=== PATIENT | male | born 1980 | race Caucasian/White ===

== ENCOUNTER 2022-01-13 06:15 | Emergency (ER) | payer OTHER, SELFPAY ==
[2022-01-13 06:15] VITALS: BP 154/101; PULSE 104; RESP 16; TEMP 36.2; O2SAT 100
[2022-01-13 07:20] VITALS: PULSE 79; RESP 15
[2022-01-13 07:30] VITALS: PULSE 83; RESP 17
[2022-01-13 07:31] VITALS: BP 152/103; PULSE 79; RESP 16
--- NOTE | 2022-01-13 07:37 | ED.ABDPAIN ---
HPI - Abdominal Pain General Chief Complaint: Abdominal Pain Stated Complaint: RUQ pain, nausea Time Seen by Provider: 01/13/22 06:51 History of Present Illness HPI narrative: 41-year-old male presenting to the emergency department for evaluation of recurrent right upper quadrant pain. Patient states that a few weeks ago he was diagnosed with cholelithiasis. Patient reports he was on a course of antibiotics and felt improved. Patient states he had recurrent pain this morning when he woke up. Patient states since the pain started it has begun to improve. Patient does report associated nausea. On initial evaluation patient was resting comfortably in the room. Related Data Allergies Allergy/AdvReac Type Severity Reaction Status Date / Time Penicillins Allergy Unknown Verified 01/13/22 06:22 Review of Systems Review of Systems: CONSTITUTIONAL: Denies fever, chills, or sweats. EYES: Denies visual changes, redness, or discharge. ENT: Denies rhinorrhea, congestion, sore throat, or otalgia. CARDIOVASCULAR: Denies chest pain, palpitations, or edema. RESPIRATORY: Denies cough or dyspnea. GASTROINTESTINAL: See HPI GENITOURINARY: Denies dysuria or hematuria. SKIN: Denies rash or itching. MUSCULOSKELETAL: Denies back pain, joint pain, or myalgia. NEUROLOGIC: Denies headache, numbness, or weakness. PSYCHIATRIC: Denies anxiety or depression. Exam Narrative: APPEARANCE: Well appearing, resting comfortably HEAD: normocephalic, atraumatic. EYES: PERRLA/EOMI, conjunctivae clear. NOSE: Normal no drainage NECK: Supple. No adenopathy, no masses. RESPIRATORY: Airway patent, respirations nonlabored. Clear to auscultation bilaterally, no rales, rhonchi, wheezing. CARDIOVASCULAR: Regular rate and rhythm without murmurs rubs or gallops. ABDOMINAL: Soft, nondistended normal bowel sounds, mild upper quadrant tenderness to palpation. MUSCULOSKELETAL: Moves all extremities. Strength/ROM intact, No edema, No calf tenderness. NEURO: Alert. Cranial nerves II through XII intact. Grossly intact SKIN: Warm, dry. Normal Color Course Course Emergency Course: Patient had minimal tenderness to palpation. Patient does have leukocytosis of 11.8. Patient was afebrile. Lactic acid is 1.3. No elevation in T bili, AST, ALT or alk phos. Patient has minimal tenderness to palpation. Low clinical concern for acute cholecystitis at this time. Patient is resting comfortably and is in no visible distress. Vital Signs Vital signs: Vital Signs Temperature 97.1 F L 01/13/22 06:15 Pulse Rate 104 H 01/13/22 06:15 Respiratory Rate 16 01/13/22 06:15 Blood Pressure 154/101 H 01/13/22 06:15 Pulse Oximetry 100 01/13/22 06:15 Temperature 97.1 F L 01/13/22 06:15 Pulse Rate 79 01/13/22 07:31 Respiratory Rate 20 01/13/22 09:50 Blood Pressure 152/103 H 01/13/22 07:31 Pulse Oximetry 100 01/13/22 06:15 MDM - Abdominal Pain Lab Data Attestation: I reviewed the patient's lab results. Result diagrams: 01/13/22 07:54 01/13/22 07:54 Labs: Lab Results 01/13/22 01/13/22 01/13/22 Range/Units 07:54 07:54 07:54 WBC 11.8 H (4.5-10.0) K/mm3 RBC 5.02 (4.6-6.20) M/mm3 Hgb 15.3 (14.0-18.0) g/dL Hct 45.6 (42.0-52.0) % MCV 90.8 (80-100) fl MCH 30.5 (26-34) pg MCHC 33.6 (32-36) g/dl RDW 12.7 (11.5-14.5) % Plt Count 251 (150-375) k/mm3 MPV 9.2 (7.4-10.4) fl Immature Gran % (Auto) 0.4 (0-0.5) % Neut % (Auto) 78.0 H (45.5-73.1) % Lymph % (Auto) 14.0 L (18.3-44.2) % Waller % (Auto) 4.3 (2.6-8.5) % Eos % (Auto) 2.9 (0-4.4) % Baso % (Auto) 0.4 (0.2-1.2) % Lymph # (Auto) 1.65 (0.9-3.2) K/mm3 Waller # (Auto) 0.5 (0.1-0.6) K/mm3 Eos # (Auto) 0.3 (0-0.3) K/mm3 Baso # (Auto) 0.1 (0.0-0.1) K/mm3 Abs Immat Gran (auto) 0.05 H (0.00-0.031) K/mm3 Absolute Neuts (auto) 9.2 H (1.3-6.7) K/mm3 Absolute Nucleated RBC 0.0 (0
[2022-01-13] MEDS: SODIUM CHLORIDE 0.9% IV 1,000 ML 999 ML IV CONT (07:54)
[2022-01-13] MEDS: KETOROLAC 15 MG/ML VIAL (*BKC) IV PUSH (07:54)
[2022-01-13] MEDS: ONDANSETRON INJ 4 MG/2 ML VIAL IV PUSH (07:55)
[2022-01-13 07:59] LABS: Basophils Absolute Auto 0.1 K/mm3 (0.0-0.1); Basophils Percent Auto 0.4 % (0.2-1.2); Eosinophils Absolute Auto 0.3 K/mm3 (0-0.3); Eosinophils Percent Auto 2.9 % (0-4.4); Hematocrit 45.6 % (42.0-52.0); Hemoglobin 15.3 g/dL (14.0-18.0); Immature Granulocyte Absolute 0.05 K/mm3 (0.00-0.031); Immature Granulocyte Percent A 0.4 % (0-0.5); Lymphocytes Absolute Auto 1.65 K/mm3 (0.9-3.2); Mean Corpuscular HGB Conc 33.6 g/dl (32-36); Mean Corpuscular Hemoglobin 30.5 pg (26-34); Mean Corpuscular Volume 90.8 fl (80-100); Mean Platelet Volume 9.2 fl (7.4-10.4); Monocytes Absolute Auto 0.5 K/mm3 (0.1-0.6); Monocytes Percent Auto 4.3 % (2.6-8.5); Neutrophils Absolute Auto 9.2 K/mm3 (1.3-6.7); Platelet Count Result 251 k/mm3 (150-375); Red Blood Count 5.02 M/mm3 (4.6-6.20); Red Cell Distribution Width 12.7 % (11.5-14.5); White Blood Count 11.8 K/mm3 (4.5-10.0)
[2022-01-13 08:09] LABS: Lactic Acid Reflex 1.3 mmol/L (0.7-2.0)
[2022-01-13 08:10] LABS: Alanine Aminotransferase 23 U/L (6-50); Alkaline Phosphatase 105 U/L (38-126); Anion Gap 4 mmol/L (8-16); Aspartate Amino Transferase 20 U/L (17-59); Bilirubin,Total 0.5 mg/dL (0.2-1.3); Blood Urea Nitrogen 15 mg/dL (9-20); Carbon Dioxide 27 mmol/L (22-30); Chloride 103 mmol/L (98-107); Estimated CRCL calculation 84 ml/min; Estimated Glomerular Filt Rate > 60; Glucose 131 mg/dL (65-110); Lipase 35 U/L (23-300); Potassium 4.3 mmol/L (3.4-5.0); Sodium 134 mmol/L (137-145)
--- NOTE | 2022-01-13 08:13 | PC.NURSE ---
0800 Pt states Ketorolac will not decrease his pain and demands to be seen by Dr. alcantar. Pt willing to try ketorolac for pain. Pt states he recieved ativan on the last visit to the ED and it was the only thing that improved his pain. Dr. Sam Sherman notified of patient request. Pt resting on side.
[2022-01-13] MEDS: LORazepam INJ (*CRX) 2 MG/ML VIAL 0.5 MG IV PUSH (08:57)
[2022-01-13 09:50] VITALS: RESP 20
== END 2022-01-13 09:50 | disposition home or self-care (01) ==
PROVIDERS: Emergency Provider Emergency Medicine
DX: K80.20 Calculus of gallbladder without cholecystitis without obstruction (principal)
CPT/HCPCS: 36415; 80053; 83605; 83690; 85025; 96361; 96374; 96375; 99284; J1885; J2060; J2405; J7030

== ENCOUNTER 2023-08-10 16:36 | Emergency (ER) | payer OTHER, SELFPAY ==
[2023-08-10 16:48] VITALS: BP 134/78; PULSE 94; RESP 16; TEMP 36.2; O2SAT 99
--- NOTE | 2023-08-10 17:19 | ED.EYEPROB ---
HPI - Eye Problem General Chief complaint: Eye Problems Stated complaint: Eyes Irritation Source: patient Mode of arrival: ambulatory Limitations: no limitations History of Present Illness HPI Narrative: 43-year-old male presented for complaint of left eye redness and blurred vision. Onset suddenly yesterday around 2100, stating the eye started blurring and tearing and the nose started running. He wears contact lenses, and states the left one fell out around 1400 yesterday, and he put it back in without cleaning it. Reports when the lenses were taken out due to the pain, the pain was actually worse, so he put the contact lens back in. Tearing is better today. He denies any injury or FB, but states he has been around [employer] while working at [employer]. Pt wears overnight contacts for months at a time as directed, but states he started with a new pair 3 days ago. chief complaint: eye pain Related Data Home Medications Medication Instructions Recorded Confirmed No Home Medications 08/10/23 08/10/23 Allergies Allergy/AdvReac Type Severity Reaction Status Date / Time Penicillins Allergy Unknown Verified 01/13/22 06:22 Review of Systems Review of Systems: CONSTITUTIONAL: Denies body aches, fever, chills EYES:Endorses redness and pain to left eye, blurred vision; denies swelling, FB sensation, photophobia ENT: Denies rhinorrhea, congestion, sore throat, or otalgia. CARDIOVASCULAR: Denies chest pain, palpitations RESPIRATORY: Denies cough or dyspnea. GASTROINTESTINAL: Denies abdominal pain, nausea, vomiting, or diarrhea. SKIN: Denies rash, itching, or wounds. MUSCULOSKELETAL: Denies back pain, joint pain, or myalgia. NEUROLOGIC: Denies headache, numbness, tingling, or weakness. All systems reviewed & are unremarkable except as noted in HPI and below PMFSH Past Medical History Medical History (Updated 08/10/23 @ 18:18 by Zahira Antonio APRN) No pertinent past medical history Comments At time of signature, I have reviewed and agree with nursing past medical, surgical, social and family history unless otherwise noted. Please see nursing chart for further information. There is no relevant family history pertinent to the presenting complaint Exam Narrative: GENERAL: Well-appearing HEAD: Normocephalic, atraumatic. EYES: Left conjunctival injection, corneal ulcer noted at 11o'clock position over pupil. PERRLA EOMI. Lid eversion shows no FB, no eye lid swelling or purulent drainage ENT: Mucous membranes pink and moist. No rhinorrhea. CHEST: Clear to auscultation. HEART: Regular rate and rhythm. ABDOMEN: Soft, nontender, nondistended SKIN: Warm, dry, no rash. Normal skin turgor. NEURO: No focal deficits. Alert and oriented x3 PSYCH: Normal affect. Course Course Emergency Course: Patient is aware of diagnosis, understands and agrees to treatment plan. Anticipatory guidance given. Patient agrees to follow-up as directed and is aware of reasons to seek care at the emergency department. Portions of this record may have been created with voice recognition software Level of Care: Express Care Visit Vital Signs Vital signs: Vital Signs Temperature 97.2 F L 08/10/23 16:48 Pulse Rate 94 08/10/23 16:48 Respiratory Rate 16 08/10/23 16:48 Blood Pressure 134/78 08/10/23 16:48 Pulse Oximetry 99 08/10/23 16:48 Oxygen Delivery Room Air 08/10/23 16:48 Temperature 97.2 F L 08/10/23 16:48 Pulse Rate 94 08/10/23 16:48 Respiratory Rate 16 08/10/23 16:48 Blood Pressure 134/78 08/10/23 16:48 Pulse Oximetry 99 08/10/23 16:48 Oxygen Delivery Room Air 08/10/23 16:48 Procedures FB Removal Eye Foreign Body #1: Foreign Body Removal Date: 08/10/23 Location: eye (L) Topical anesthetic used: tetracaine Evidence of corneal penetration: Yes (c/w corneal ulcer) Procedure performed under: other (gottlieb lamp) Patient tolerated
--- NOTE | 2023-08-10 17:43 | PC.NURSE ---
regional sales associate in to do eye exam. had contact in and pt removed prior to exam.
== END 2023-08-10 17:59 | disposition home or self-care (01) ==
PROVIDERS: Emergency Provider Nurse Practitioner Family
DX: H16.002 Unspecified corneal ulcer, left eye (principal)
CPT/HCPCS: 99213; A9270; G0463

== ENCOUNTER 2023-08-15 18:38 | Emergency (ER) | payer OTHER, SELFPAY ==
--- NOTE | 2023-08-15 18:39 | ED.EYEPROB ---
HPI - Eye Problem General Chief complaint: Eye Problems Stated complaint: Left Eye Irritation Time Seen by Provider: 08/15/23 18:55 Source: patient and RN notes reviewed Mode of arrival: ambulatory Limitations: no limitations History of Present Illness HPI Narrative: 43-year-old male presents with concern for continuing eye pain and a work note. Reports he was seen here on August 10 for eye pain was diagnosed with a corneal ulcer. He has been using the eyedrops as prescribed without much relief. Reports he tried to go to the eye doctor a [facility] but they did not take his insurance and wanted to charge him 40 dollars. He has not called [employer] [facility] yet. He reports he has missed work and they require a work note for every day that he has missed. MD chief complaint: eye pain Related Data Allergies Allergy/AdvReac Type Severity Reaction Status Date / Time Penicillins Allergy Unknown Verified 08/15/23 18:47 Review of Systems Review of Systems: CONSTITUTIONAL: Denies malaise, chills, sweats, or fever. EYES: Denies visual changes. Reports left eye redness, pain, discharge ENT: Denies rhinorrhea, congestion, sinus pain, otalgia or sore throat. SKIN: Denies rash or itching. NEUROLOGIC: Denies numbness, weakness, or headache. PSYCHIATRIC: Denies anxiety or depression. All systems reviewed & are unremarkable except as noted in HPI and below PMFSH Past Medical History Medical History (Updated 08/15/23 @ 19:05 by Berta Braswell NP) No pertinent past medical history Comments At time of signature, agree with nursing past medical, surgical, social and family history. There is no relevant family history pertinent to the presenting complaint Exam Narrative: GENERAL: Well-appearing, well-nourished, and in no acute distress. HEAD: Normocephalic, atraumatic. EYES: PERRLA, and EOMI. No nystagmus. Left sclera mildly injected, corneal ulcer visible, no foreign body visible. Upper and lower eyelid unremarkable, no periorbital edema noted ENT: Nares clear, turbinates pink, no rhinorrhea or epistaxis. Mucous membranes moist. TM pearly duncan with sharp light reflex bilaterally; no tragal tenderness. NECK: Supple. CHEST: No respiratory distress. Speaks in full sentences. HEART: Regular rate and rhythm. SKIN: Warm, dry, no visible rash. NEURO: Alert and oriented x3. PSYCH: Normal mood and affect Course Course Emergency Course: I discussed importance of seeing complaint investigator for further evaluation with this patient. I advised he call mother [facility] or clerks and [facility] 1st thing on Thursday morning. He is concerned with those doctors taking his insurance. I advised him that hospitals in [facility] such as [facility] and [facility] may have complaint investigator on-call in the emergency room if he would present to the ER there. Patient is aware of diagnosis, understands and agrees to treatment plan. Anticipatory guidance given. Patient agrees to follow-up as directed and is aware of reasons to seek care at the emergency department. Portions of this record may have been created with voice recognition software Level of Care: Express Care Visit Vital Signs Vital signs: Reviewed. MDM - Eye Problem MDM Narrative Medical decision making narrative: Consideration of the following conditions may be warranted for the presenting problem, they are not final diagnoses: Bacterial conjunctivitis, allergic conjunctivitis, viral conjunctivitis, foreign body, blepharitis, chalazion, hordeolum, corneal abrasion, preseptal cellulitis, orbital cellulitis. No evidence of proptosis, ophthalmoplegia, vision loss, pain with eye movement. Exam findings show no acute concerns or changes; patient is non-toxic appearing and is in no distress. Patient is appropriate for outpatient treatment and follow-up. Critical Care Time Critical Care Time Critical Care Time: No Discharge Plan Discharge Clinical Impression: Corneal abrasion Patient
[2023-08-15 18:46] VITALS: BP 131/88; PULSE 100; RESP 16; TEMP 36.1; O2SAT 97
[2023-08-15 18:48] VITALS: BP 131/88; PULSE 100; RESP 16; TEMP 36.1; O2SAT 97
== END 2023-08-15 19:08 | disposition home or self-care (01) ==
PROVIDERS: Emergency Provider Nurse Practitioner
DX: S05.02XA Injury of conjunctiva and corneal abrasion without foreign body, left eye, initial encounter (principal); X58.XXXA Exposure to other specified factors, initial encounter
CPT/HCPCS: 99212; G0463

== ENCOUNTER 2023-09-30 19:31 | Emergency (ER) | payer OTHER, SELFPAY ==
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
== END 2023-09-30 20:00 | disposition home or self-care (01) ==
PROVIDERS: Emergency Provider Registered Nurse; PCP Emergency Medicine
DX: S39.012A Strain of muscle, fascia and tendon of lower back, initial encounter (principal); V69.50XA Passenger in heavy transport vehicle injured in collision with unspecified motor vehicles in traffic accident, initial encounter
CPT/HCPCS: 99213; G0463

== ENCOUNTER 2023-10-14 23:48 | Emergency (ER) | payer OTHER, SELFPAY ==
--- NOTE | ~2023-10-14 | XR_ITS ---
Portable chest x-ray Comparison: None Clinical History: Chest pain Findings: Lungs are clear, without focal consolidation or pleural effusion. Cardiomediastinal silho uette is stable. Bones and soft tissues are unremarkable. Impression: Clear lungs. Reviewed, dictated and finalized at location M. [facility] CHIEF Impression: Clear lungs.
[2023-10-14 23:45] VITALS: BP 137/90; PULSE 96; RESP 16; TEMP 36.4; O2SAT 99
--- NOTE | 2023-10-14 23:50 | ECG_ITS ---
Measurements Intervals [place] Rate: 90 P: 34 NM: 135 QRS: 55 QRSD: 94 T: 53 QT: 343 QTc: 421 Interpretive Statements SINUS RHYTHM NORMAL ECG NO PREVIOUS ECG AVAILABLE FOR COMPARISON Electronically Signed On 10-15-2023 6:30:[address] ENGINEER by Julio Cesar Mcneal D.O.
[2023-10-14 23:52] VITALS: PULSE 86
[2023-10-14 23:53] VITALS: O2SAT 100
[2023-10-14 23:54] VITALS: BP 137/90; PULSE 93; RESP 16; O2SAT 95
[2023-10-15] VITALS: BP 148/93; PULSE 92; RESP 13; O2SAT 97
[2023-10-15 00:31] LABS: INR 0.9; Prothrombin Time 12.5 Seconds (11.1-14.7)
[2023-10-15 00:35] LABS: Basophils Absolute Auto 0.1 K/mm3 (0.0-0.1); Basophils Percent Auto 0.7 % (0.2-1.2); Eosinophils Absolute Auto 0.3 K/mm3 (0-0.3); Eosinophils Percent Auto 2.5 % (0-4.4); Hematocrit 44.4 % (42.0-52.0); Hemoglobin 14.9 g/dL (14.0-18.0); Immature Granulocyte Absolute 0.16 K/mm3 (0.00-0.031); Immature Granulocyte Percent A 1.6 % (0-0.5); Lymphocytes Absolute Auto 1.77 K/mm3 (0.9-3.2); Lymphocytes Percent Auto 17.3 % (18.3-44.2); Mean Corpuscular HGB Conc 33.6 g/dl (32-36); Mean Corpuscular Hemoglobin 30.5 pg (26-34); Mean Corpuscular Volume 90.8 fl (80-100); Mean Platelet Volume 9.6 fl (7.4-10.4); Monocytes Absolute Auto 0.6 K/mm3 (0.1-0.6); Monocytes Percent Auto 5.6 % (2.6-8.5); Neutrophils Absolute Auto 7.4 K/mm3 (1.3-6.7); Neutrophils Percent Auto 72.3 % (45.5-73.1); Platelet Count Result 244 k/mm3 (150-375); Red Blood Count 4.89 M/mm3 (4.6-6.20); Red Cell Distribution Width 12.6 % (11.5-14.5); White Blood Count 10.2 K/mm3 (4.5-10.0)
[2023-10-15 00:40] LABS: Alanine Aminotransferase 21 U/L (6-50); Albumin Level 3.8 g/dL (3.5-5.1); Alkaline Phosphatase 139 U/L (38-126); Anion Gap 6 mmol/L (8-16); Aspartate Amino Transferase 23 U/L (17-59); Bilirubin,Total 0.3 mg/dL (0.2-1.3); Blood Urea Nitrogen 16 mg/dL (9-20); Calcium 9.2 mg/dL (8.4-10.2); Carbon Dioxide 23 mmol/L (22-30); Chloride 110 mmol/L (98-107); Estimated CRCL calculation 95 ml/min; Estimated Glomerular Filt Rate > 60; Glucose 115 mg/dL (65-110); Lipase 63 U/L (23-300); Potassium 4.2 mmol/L (3.4-5.0); Sodium 139 mmol/L (137-145)
[2023-10-15 00:52] LABS: Troponin I < 0.012 ng/mL (0.000-0.034)
--- NOTE | 2023-10-15 01:01 | ED.CHESTPAIN ---
HPI - Chest Pain General Chief Complaint: Chest Pain <DIMA Smith Last Filed: 10/15/23 03:27> Stated Complaint: cp dizzy hot in police custody <DIMA Smith Last Filed: 10/15/23 03:27> Time Seen by Provider: 10/14/23 23:55 <DIMA Smith Last Filed: 10/15/23 03:27> History of Present Illness HPI narrative: 43-year-old male presents to the emergency department for chest pain. Patient arrived via EMS and police custody from the local police station. Patient states he was sitting earlier today when he developed pain in his left lower chest wall/left upper quadrant of his abdomen. States it felt ?uncomfortable? however he cannot describe the pain. It was associated with feeling hot and dizzy. States that lasted for approximately 10 seconds and went away. This occurred 2-3 times and has since resolved. He has not had any recurrence of his symptoms and states he is currently symptomatic. It is not associated with shortness of breath, states it is nonradiating, no association of nausea or vomiting, no diaphoresis. Denies prior cardiac history. Reports his grandfather had heart disease. Patient reports using methamphetamines. States he use and within the past 24 hours. Denies other drug or alcohol use. Denies fever, cough or congestion, shortness of breath. <Caitie Garcia PA-C - Last Filed: 10/15/23 03:27> Related Data Allergies/Adverse Reactions: Allergies Allergy/AdvReac Type Severity Reaction Status Date / Time Penicillins Allergy Unknown Verified 09/30/23 19:33 <Caitie Garcia PA-C - Last Filed: 10/15/23 03:27> Review of Systems Review of Systems: CONSTITUTIONAL: Denies fever, chills, or sweats. EYES: Denies visual changes, redness, or discharge. ENT: Denies rhinorrhea, congestion, sore throat, or otalgia. CARDIOVASCULAR: See HPI RESPIRATORY: Denies cough or dyspnea. GASTROINTESTINAL: Denies abdominal pain, nausea, vomiting, or diarrhea. GENITOURINARY: Denies dysuria or hematuria. SKIN: Denies rash or itching. MUSCULOSKELETAL: Denies back pain, joint pain, or myalgia. NEUROLOGIC: Denies headache, numbness, or weakness. PSYCHIATRIC: Denies anxiety or depression. <Caitie Garcia PA-C - Last Filed: 10/15/23 03:27> PMFSH Past Medical History Medical History: Medical History No pertinent past medical history <Caitie Garcia PA-C - Last Filed: 10/15/23 03:27> Exam Narrative: GENERAL: Well-appearing, well-nourished, and in no acute distress. Sleeping upon my arrival to exam room. Easily aroused with verbal stimuli. HEAD: Normocephalic, atraumatic. EYES: PERRLA and EOMI. ENT: Nares clear, no rhinorrhea or epistaxis. Mucous membranes moist. NECK: Supple. CHEST: Clear to auscultation. No respiratory distress. HEART: Regular rate and rhythm. No murmur heard. Normal peripheral pulses. ABDOMEN: Soft, nontender, nondistended, normal active bowel sounds. No guarding, rebound or rigidity. No CVA tenderness. EXTREMITIES: Normal range of motion. No edema. SKIN: Warm, dry, no rash. NEURO: No focal deficits. Alert and oriented x3 <Caitie Garcia PA-C - Last Filed: 10/15/23 03:27> Course VIRTUALIZATION ENGINEER/PA Physician Supervision For this patient encounter, I reviewed the VIRTUALIZATION ENGINEER or PA documentation, treatment plan, and medical decision making and had [id number] time with this patient. I performed all aspects of the MDM as documented. <Mathew Rivera MD - Last Filed: 10/15/23 03:58> Vital Signs Vital signs: Vital Signs Temperature 97.6 F 10/14/23 23:45 Pulse Rate 96 10/14/23 23:45 Respiratory Rate 16 10/14/23 23:45 Blood Pressure 137/90 10/14/23 23:45 Pulse Oximetry 99 10/14/23 23:45 Oxygen Delivery Room Air 10/14/23 23:45 Temperature 97.6 F 10/14/23 23:45 Pulse Rate 84 10/15/23 02:00 Respiratory Rate 15 10/15/23 02:00 Blood Pres
[2023-10-15 01:19] LABS: Ethanol < 10 mg/dL (<10)
[2023-10-15 01:55] LABS: Appearance Urine Clear (Clear); Bilirubin Urine Negative (Negative); Blood Urine Negative (Negative); Color Urine Yellow (Yellow); Glucose Urine UA Negative (Negative); Ketones Urine Negative (Negative); Leukocyte Esterase Ur Negative LEU/UL (Negative); Nitrate Urine Negative (Negative); Protein Urine Negative (Negative); Urobilinogen Urine 0.2 mg/dL (<2.0); pH Urine 6.5 (5.0-9.0)
[2023-10-15 02:00] VITALS: BP 151/102; PULSE 84; RESP 15; O2SAT 99
[2023-10-15 02:23] LABS: Add Urine Microscopic? NO
--- NOTE | 2023-10-15 02:40 | ECG_ITS ---
Measurements Intervals [place] Rate: 84 P: 43 ME: 129 QRS: 42 QRSD: 98 T: 42 QT: 368 QTc: 437 Interpretive Statements SINUS RHYTHM NORMAL ECG COMPARED TO ECG 10/14/2023 23:49:51 NO SIGNIFICANT CHANGES Electronically Signed On 10-15-2023 6:31:58 MANAGER UI by Julio Cesar Mcneal D.O.
[2023-10-15 02:47] LABS: Barbiturate Screen Urine Negative (Negative); Benzodiazepines Screen Urine Negative (Negative); Cannabinoid Screen Urine Positive (Negative); Cocaine Screen Urine Negative (Negative); Methadone Screen Urine Negative (Negative); Opiate Screen Urine Negative (Negative); Phencyclidine Screen Urine Negative (Negative)
[2023-10-15 03:37] LABS: Troponin I < 0.012 ng/mL (0.000-0.034)
[2023-10-15 03:46] LABS: Amphetamine Screen Urine Positive (Negative)
[2023-10-15 04:15] VITALS: BP 142/95; PULSE 67; RESP 16; O2SAT 97
== END 2023-10-15 04:16 | disposition home or self-care (01) ==
PROVIDERS: Emergency Medicine; Emergency Provider Physician Assistant; PCP Emergency Medicine
DX: R07.89 Other chest pain (principal)
CPT/HCPCS: 36415; 71045; 80053; 80307; 81003; 83690; 84484; 85025; 85610; 85730; 93005; 99284